=== PATIENT | female | born 1975 ===

== ENCOUNTER 2017-02-18 07:29 | Inpatient (IN) | payer SELFPAY ==
--- NOTE | 2017-02-18 15:31 | BCON ---
[f rep st] BEHAVIORAL HEALTH CONSULTATION INTERNAL MEDICINE CONSULTATION DATE OF CONSULTATION: 02/18/2017 REFERRING PHYSICIAN: Daiana Kim MD REASON FOR REFERRAL: Medical clearance for inpatient behavioral health stay. HISTORY OF PRESENT ILLNESS: This patient was transferred to [facility] inpatient rehabilitation from [facility], where she had presented after a suicide attempt with an overdose on Advil P.M. She was there cleared of any significant toxicity, and transferred for further psychiatric care. She currently is without any acute medical complaints. PAST MEDICAL HISTORY: Diverticulitis with a hospitalization approximately 5 years ago. She reports that she had no surgery and was advised to avoid nuts and seeds in her diet. PAST SURGICAL HISTORY: She has had no surgeries. She has had several miscarriages. SOCIAL HISTORY: She is . She lives with her . She has no children. She is a nonsmoker and nondrinker. 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 FAMILY HISTORY: Noncontributory. REVIEW OF SYSTEMS: She reports recent weight gain over several months. She reports insomnia and finds it difficult to get to sleep due to too many thoughts in her head. She reports that she snores, per report of her . In the morning, she does not typically feel refreshed and sometimes she has morning headaches. No one has witnessed any apneas. She denies cough or dyspnea. She denies chest pain or palpitations. She denies nausea, vomiting, constipation, or diarrhea. She denies dysuria or urinary frequency. Other than that, a 10-point review of systems is negative. PHYSICAL EXAM: VITAL SIGNS: Blood pressure is 114/59, heart rate is 62, respiratory rate is 15, oxygen saturation 95% on room air. Her weight is 92.5 kg for a body mass index of 39.8. GENERAL: This is an obese woman, appears her chronologic age, cooperative and in no acute distress. HEENT: Extraocular movements are intact. Pupils are equal, round, and reactive to light. Mucous membranes are moist. Dentition is in good condition. Airway is mildly crowded , Mallampati class 2. NECK: Supple. HEART: Regular rate and rhythm with no murmurs, rubs, or gallops. LUNGS: Clear to auscultation bilaterally. ABDOMEN : Soft, nontender, nondistended with normoactive bowel sounds. EXTREMITIES: There is no cyanosis or clubbing. There is trace to 1+ edema bilaterally to the lower extremities. NEUROLOGIC: She is alert and oriented x3. Cranial nerves 2-12 are grossly intact. There is no focal weakness. Sensation is intact to light touch. Gait is within normal limits. LABORATORY STUDIES: Drawn at [facility]. CBC and BMP were overall within normal limits. She had a slightly low calcium at 8.2. Beta hCG was negative for . Toxicology screen in the serum was negative for salicylates, acetaminophen or ethyl alcohol. ASSESSMENT/RECOMMENDATIONS: 1. Mental health problems. Pending further evaluation and management per Psychiatry and the mental health team. 2. Weight gain. She has few other symptoms referable to the thyroid. However , she does have fatigue, not feeling rested after sleep, and she has some pretibial edema. I will order a TSH for tomorrow morning to rule out hypothyroidism. 3. Insomnia and snoring, possible obstructive sleep apnea. Advise consideration of a sleep study to rule out sleep apnea after discharge. 4. Obesity. Consider avoiding medications which would worsen weight gain, though her psychosocial stabilization is first priority at present. 5. I see no medical contraindications to this patient's continued stay on the inpatient behavioral health unit or to any psychiatric medications or procedures. Thank you very much for including me in the care of this patient, and please do not hesitate to contact me or the hospitalist service should there be need for further medical evaluation. /[id number]/MODL MTDD
[2017-02-18] MEDS ORDERED: LORazepam 0.5 MG TAB PO PRN (15:58)
[2017-02-18] MEDS ORDERED: MAG HYDROX/AL HYDROX/SIMETH 30 ML UDCUP PO PRN (15:59)
[2017-02-18] MEDS ORDERED: NICOTINE POLACRILEX 2 MG GUM B PRN (15:59)
[2017-02-18] MEDS ORDERED: MAGNESIUM HYDROXIDE 30 ML UDCUP PO PRN (15:59)
[2017-02-18] MEDS ORDERED: SERTRALINE HCL 25 MG TAB PO ONE (16:00)
[2017-02-19] MEDS: ACETAMINOPHEN 325 MG TAB PO PRN ×2 (00:04→21:30)
[2017-02-19] MEDS: MELATONIN 3 MG TAB PO PRN (00:04)
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
[2017-02-19 06:26] VITALS: O2SAT 96
[2017-02-19] MEDS ORDERED: SERTRALINE HCL 25 MG TAB PO ONE (08:15)
[2017-02-19] MEDS: SERTRALINE HCL 50 MG TAB PO SCH (11:56)
[2017-02-19] MEDS ORDERED: LEVOTHYROXINE 137 MCG TAB PO SCH (12:00)
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
--- NOTE | 2017-02-19 15:12 | SOAPPROG ---
SOAP Progress Note Assessment/Plan: Assessment: * Hypothyroidism. Initiated levothyroxine supplementation by weight based protocol, 1.6 micrograms/kilogram, 137 mcg p.o. q.day. Explained to patient that hypothyroidism likely does not explain all of her mental health issues or weight gain and fatigue. However she should expect to feel better less fatigued and have some weight loss. She should have a repeat TSH in approximately 4-6 weeks. She needs to establish with a primary care provider for ongoing management. I have added on a free T4 free T3 and anti thyroid peroxidase antibodies to further characterize her hormonal state and evaluate for 1 possible etiology * Amenorrhea x2 months. This may be due to hypothyroidism. Beta HCG was negative for in the laboratory evaluation at [facility]. Again she should establish with a primary care physician for ongoing monitoring and management. 02/19/17 15:12 Subjective: Follow-up on lab results. TSH elevated at 13 consistent with hypothyroidism. Patient is without complaints today but reiterates recent history of fatigue and weight gain. She reports amenorrhea x2 months. Objective: Vital Signs Temp Pulse Resp BP Pulse Ox 36.8 C 75 14 115/66 96 02/19/17 06:00 02/19/17 06:00 02/19/17 06:00 02/19/17 06:00 02/19/17 06:00 Physical Exam - Physical Exam General Appearance: WD/WN, alert, no apparent distress, obese Neck: non-tender, supple, No thyromegaly ICD10 Worksheet Patient Problems: Problems Problem Status Onset Depression Acute Suicide attempt Acute
[2017-02-19] MEDS ORDERED: IBUPROFEN 800 MG TAB PO ONE (22:35)
[2017-02-19] MEDS ORDERED: ACETAMINOPHEN 500 MG TAB PO PRN (22:35)
[2017-02-20] MEDS: MELATONIN 3 MG TAB PO PRN ×2 (00:37→23:49)
[2017-02-20 02:09] VITALS: RESP 16
[2017-02-20] MEDS: SERTRALINE HCL 50 MG TAB PO SCH (09:18)
[2017-02-20] MEDS ORDERED: LEVOTHYROXINE 137 MCG TAB PO SCH (10:00)
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
[2017-02-21] MEDS ORDERED: SERTRALINE HCL 50 MG TAB PO SCH
[2017-02-21 00:54] VITALS: BP 112/57; PULSE 61; TEMP 97.9
[2017-02-21] MEDS: SERTRALINE HCL 50 MG TAB PO SCH (08:36)
[2017-02-21] MEDS ORDERED: LEVOTHYROXINE 137 MCG TAB PO SCH (08:59)
[2017-02-21] MEDS ORDERED: LEVOTHYROXINE 112 MCG TAB PO SCH ×2 (11:15)
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
== END 2017-02-21 17:00 | disposition home or self-care (01) | DRG 885 ==
LOC: BBEH 11:15
PROVIDERS: ADMIT Psychiatry & Neurology Behavioral Neurology & Neuropsychiatry; ATTEND Specialist
DX: F33.2 Major depressive disorder, recurrent severe without psychotic features (principal); F43.12 Post-traumatic stress disorder, chronic; T39.92XA Poisoning by unspecified nonopioid analgesic, antipyretic and antirheumatic, intentional self-harm, initial encounter; E03.9 Hypothyroidism, unspecified; G47.00 Insomnia, unspecified; N91.2 Amenorrhea, unspecified; E66.9 Obesity, unspecified; Z68.39 Body mass index [BMI] 39.0-39.9, adult; Z59.9 Problem related to housing and economic circumstances, unspecified; Z91.410 Personal history of adult physical and sexual abuse
CPT/HCPCS: 84481-90